=== PATIENT | female | born 1970 | race Caucasian/White ===

== ENCOUNTER 2017-02-14 10:20 | Day surgery (SDC) | payer OTHER ==
[~2017-02-14] VITALS: Ht 156.2 cm; Wt 95.2 kg
[~2017-02-14 10:20] MED LIST: 0.9% Sodium Chloride 1,000 ML IV SCH; ALBU8.5H2 INHALATION; CALC-140 PO; FLUT12AE8 IH; FLUT9.9S NS; IBUP800T28 PO; LORA0.5T PO; PREN-100 PO; Sodium Chloride LOK Flush 10 mL Syringe IV PRN; fentaNYL-PF 50 mCg/mL 2 mL Inj IVPUSH PRN
[2017-02-14 10:57] VITALS: BP 114/64; PULSE 84; RESP 16; O2SAT 98
[2017-02-14] MEDS ORDERED: LACT1CAP75 PO (11:01)
[2017-02-14] MEDS ORDERED: CHOL5000 PO (11:02)
[2017-02-14 12:04] VITALS: BP 114/65; PULSE 74; RESP 15; O2SAT 99
[2017-02-14 12:24] VITALS: BP 109/62; PULSE 72; RESP 16; O2SAT 100
--- NOTE | 2017-02-14 13:06 | ENDO ---
[address] [address] ENDOSCOPY PROCEDURE PATIENT: ADRIANA KRISHNA : 1970 MR#: [id number] ADMIT: 02/14/2017 JOB ID: [id number] DATE OF SERVICE: 02/14/2017 PRIMARY PROVIDER: Flo Mathew DO PROCEDURE: Colonoscopy. INDICATIONS: A 46-year-old female with multifocal abdominal pain, elevated C-reactive protein, history of inflammation at the ileocecal valve at last colonoscopy in 2011, history of enteritis at CT, and a history of colonic tubular adenoma. Updated colonoscopy is thus pursued. EQUIPMENT: [employer]. SEDATION: Versed 5 mg, 100 mcg fentanyl. COMPLICATIONS: None identified. BOWEL PREP: Excellent. DESCRIPTION OF PROCEDURE: After the risks and benefits were explained, written and verbal informed consent was obtained. The patient was brought into the endoscopy suite and placed into the left lateral decubitus position. Sedation was achieved using the above-stated medications with the addition of oxygen via nasal cannula. A digital rectal examination was accomplished and did not elicit any anorectal pathology. The scope was introduced into the rectum and advanced under direct visualization to the cecum as identified by the appendiceal orifice and ileocecal valve. The terminal ileum was briefly interrogated. The scope was then slowly withdrawn to carefully examine the mucosa for any defects or lesions. Retroflexed views were avoided in the rectum. Multiple direct views were made through the dentate line for exclusion of pathology. The colon was decompressed. The scope removed from the patient who tolerated the procedure well. FINDINGS: The terminal ileal mucosa appeared entirely normal and healthy. Photograph was taken. I did not see any signs of inflammation throughout the colon. The ileocecal valve appeared normal. No polyps or mass lesions identified throughout. The rectal mucosa appeared healthy and normal as well. ENDOSCOPIC DIAGNOSIS: Visually normal colonoscopy and terminal ileoscopy. RECOMMENDATIONS: 1. Considering clinical symptoms, proceed with MRCP in light of the right upper quadrant pain and mildly abnormal liver chemistries. 2. Depending on findings at MRCP and any persisting symptoms, we may need to consider a small bowel capsule endoscopy.
== END 2017-02-14 23:59 | disposition home or self-care (01) ==
LOC: END 10:20
PROVIDERS: ATTEND Internal Medicine Gastroenterology
DX: R10.11 Right upper quadrant pain (principal); R79.89 Other specified abnormal findings of blood chemistry; R19.7 Diarrhea, unspecified; Z86.010 Personal history of colon polyps; G47.33 Obstructive sleep apnea (adult) (pediatric); R01.1 Cardiac murmur, unspecified; E66.9 Obesity, unspecified; Z68.41 Body mass index [BMI] 40.0-44.9, adult; Z79.51 Long term (current) use of inhaled steroids
CPT/HCPCS: 45378; G0500; J7030

== ENCOUNTER 2017-02-16 18:21 | Emergency (ER) | payer OTHER ==
[~2017-02-16] VITALS: Ht 157.5 cm; Wt 90.9 kg
[~2017-02-16 18:21] MED LIST changes: -0.9% Sodium Chloride 1,000 ML IV SCH; -ALBU8.5H2 INHALATION; +CHOL5000 PO; -IBUP800T28 PO; +LACT1CAP75 PO; -LORA0.5T PO; -PREN-100 PO; -Sodium Chloride LOK Flush 10 mL Syringe IV PRN; -fentaNYL-PF 50 mCg/mL 2 mL Inj IVPUSH PRN
[2017-02-16 18:29] VITALS: BP 142/78; PULSE 98; RESP 16; O2SAT 99
[2017-02-16 19:33] LABS: BASOPHILS % (AUTO) 0.3 % (0-3); EOSINOPHILS % (AUTO) 0.8 % (0-5); MONOCYTES % (AUTO) 6.6 % (4-12); Mean Corpuscular Hemoglobin 29.3 pg (27.0-35.0); Mean Corpuscular Volume 87.8 fL (81-100); NEUTROPHILS % (AUTO) 65.5 % (40-74); Platelet Count 286 bil/L (150-400)
--- NOTE | 2017-02-16 20:24 | ED.REPORT ---
HPI-Abd Pain F 40 and Over Date of Service Feb 16, 2017 ED Provider: Trell Bennett MD Pt is an obese 46 year old female with a history of recent colonoscopy, appendectomy, cholecystectomy, and who presents to the ED complaining of gradually worsening right-sided abdominal pain that radiates to her back onset yesterday. She had a colonoscopy on 02/14/17 that was WNL, and was referred to [facility] by Dr. Ramires when her pain started. The pt denies fever, nausea, vomiting, diarrhea, and dysuria. She reports that she has been eating and drinking fine, but has increased urinary frequency. She rates the pain as 7/10 and describes it as "spasms" in her back and stabbing abdominal pain. The pain is exacerbated with sitting and pressure. The pt reports that she has chronic epigastric pain for which she is scheduled for an MRCP in the near future. Pt has not taken anything to relieve her symptoms today, but took Tylenol last night. Nursing Notes Stated Complaint: ABDOMEN PAIN Chief Complaint: Female Abdominal Pain Nursing Notes Reviewed: Yes Allergies: Coded Allergies: erythromycin base (Verified Allergy, Severe, HIVES, 02/16/17) esomeprazole (Verified Allergy, Severe, HEADACHE, 02/16/17) Cephalosporins (Verified Allergy, Unknown, HIVES, 02/16/17) Macrolide Antibiotics (Verified Allergy, Unknown, 02/16/17) azithromycin (Verified Allergy, Unknown, HIVES, 02/16/17) clarithromycin (Verified Allergy, Unknown, 02/16/17) Scheduled Calcium Carbonate/Vitamin D3 (Calcium + Vitamin D Tablet) 1 Each Tablet 1 EACH PO DAILY Cholecalciferol (Vitamin D3) (Vitamin D3) 5,000 Unit Capsule 5,000 UNIT PO DAILY Fluticasone Propionate (Flonase Allergy Relief) 50 Mcg/Actuation [place].susp 1 SPRAY NS DAILY Fluticasone Propionate (Flovent HFA 110 mcg) 12 Gm Aer.w.adap 1 PUFF IH BID Lactobacillus Combo No.10 (Probiotic) 1 Each Capsule 1 EACH PO DAILY General Time Seen by MD: 20:17 Chief Complaint Abdominal pain Hx Obtained From: Patient Arrived By: Walk-in Sudden in Onset?: No Onset Occurred: 1 day ago Symptom Duration: Since onset Progression since Onset: Gradually worsening Location: : RLQ: RUQ Quality: Stabbing Radiation: : Back Severity: Current: Pain level 7 out of 10 Severity: Maximum: Pain level 7 out of 10 Recent Healthcare: Recent doctor visit, Previous surgery Similar Sx Previous: No Past Medical History Past Medical History History of multifocal abdominal pain, history of inflammation at the ileocecal valve colonoscopy in 2012 History of colonic tubular adenoma Past Surgical History Colonoscopy on 02/14/17 that was WNL Smoking History Never Smoker Social History Alcohol Use: "Social" Drug Use: Denies drug use Ambulatory Status Independent Review of Systems Constitutional: Denies: Fever GI: Reports: Abdominal pain, Denies: Diarrhea, Nausea, Vomiting Female: Reports: Urinary frequency, Denies: Dysuria Musculoskeletal: Reports: Back pain Complete sys rev & neg: except as marked. Physical Exam Vital Signs Vital Signs (First) Date Time Temp Pulse Resp B/P Pulse Ox O2 Delivery O2 Flow Rate FiO2 02/16/17 18:29 36.8 98 16 142/78 99 Room Air Initial VS: Reviewed Head / Eyes: Atraumatic, Normocephalic, PERRL ENT: Mucous membranes moist, Conjunctiva normal, No scleral icterus Neck: Supple, Full range of motion Extremities: Vascular intact, Neuro intact Skin: Warm, Dry, No cyanosis Neurologic: Alert, Oriented, Nonfocal Psychiatric: Mood/affect normal, Behavior normal General/Constitutional: Awake, Alert, No acute distress, Cooperative, Not toxic appearing Respiratory / Chest: Breath sounds NL, Breath sounds = bilat, No respiratory distress, No rales, No rhonchi, No wheezing, No retractions Cardiovascular: Heart rate NL, Regular rhythm, Heart sounds NL Abdomen: Soft, No guarding, No rebound Trace tenderness on the right side. Back: Atraumatic, Full range of motion Interpretation & Diagnostics Lab Results Interpretation Result Diagram: 02/16/17190902/16/171909 Test 02/16/17 19:10 02/16/17 19:45 White Blood Count 11.5th/mm3 (3.8-10.1) Red Blood Count 4.75mil/mm3 (3.90-5.20) Hemoglobin 13.9g/dL (12.0-15.6) Hematocrit 41.7% (35.0-46.0) Mean Corpuscular Volume 87.8fL (81-100) Mean Corpuscular Hemoglobin 29.3pg (27.0-35.0) Mean Corpuscular Hemoglobin Concent 33.3% (32.0-37.0) Red Cell Distribution Width 13.4% (12.3-15.4) Platelet Count 286bil/L (150-400) Neutrophils (%) (Auto) 65.5% (40-74) Lymphocytes (%) (Auto) 26.5% (14-46) Monocytes (%) (Auto) 6.6% (4-12) Eosinophils (%) (Auto) 0.8% (0-5) Basophils (%) (Auto) 0.3% (0-3) Sodium Level 138mEq/L (134-144) Potassium Level 3.9mEq/L (3.5-5.2) Chloride Level 98mEq/L (97-108) Carbon Dioxide Level 23mmol/L (18-29) Blood Urea Nitrogen 11mg/dL (6-24) Creatinine 0.74mg/dL (0.57-1.00) Estimat Glomerular Filtration Rate 121mL/min (>59) Glucose Level 103mg/dL (60-99) Calcium Level 10.0mg/dL (8.5-10.1) Magnesium Level 2.0mg/dL (1.6-2.6) Total Bilirubin 0.4mg/dL (0.0-1.2) Aspartate Amino Transf (AST/SGOT) 20U/L (0-50) Alanine Aminotransferase (ALT/SGPT) 23U/L (0-32) Alkaline Phosphatase 131U/L (25-150) Total Protein 8.0g/dL (6.4-8.4) Albumin 4.2g/dL (3.4-5.0) Lipase 44U/L (13-60) Hold Lowery Top Tube Received (Received) Hold Urine Received (Received) Lab Results Interpretation: CBC positive leukocytosis CMP normal Urine negative Urine dip negative CT Abd / Pelvis Interpretation IMPRESSION: No inflammation seen, no free air identified. There is no sign of colonic hematoma related to recent colonoscopy. Source of current pain is not identified. Dictated by: Bello Velasquez M.D. on 02/16/2017 at 21:08 Study type: Abdominal CT IV contrast Interpretation / Wet Read by: Interpret - Radiologist Re-Eval/Medical Decision Med Decision/Clinical Course This is a 46-year-old female who presents referred to the emergency department for abdominal pain following a colonoscopy. The colonoscopy was normal, and was performed due to abdominal pain of uncertain etiology with a previous history of terminal ileum inflammation. A procedure note demonstrate no complications or issues during the procedure. The patient had increasing pain for the past 2 days. No fevers, no nausea or vomiting. She still has her midepigastric pain as well for which an MRCP is now being planned, reports this is a different type of pain. Patient clinically appears well. Her labs are normal. A CT abdomen and pelvis was obtained and was negative-no pathology identified, no complication of procedure such as perforation or injury. Patient is reassured. She does receive a pre-pack of oxycodone for pain control. Basis. Routine precautions reviewed. Patient's discharge in good condition Source of Hx: Old records Re-Evaluation/Progress : Time of Eval: 21:21 Re-Evaluation/Progress Note: Pt rechecked. Informed pt of plan for discharge. Pt understands and agrees with plan for discharge. F/U instructions and RTER warnings given. All questions addressed. Differential Diagnosis: Positive: Acute abdominal pain, Negative: Abdominal aortic aneurysm, Bladder outlet obstruct, Bowel obstruction, C. diff colitis, Cervicitis, Cholangitis, Cholecystitis, Cholelithiasis, Constipation, Diverticular disease, Ectopic , Endometriosis, Esophageal rupture, Gun shot wound abdomen, Peptic ulcer disease , Peritonitis, Porphyria, Stab wound abdomen, Trauma, abdominal Counseled Regarding: Diagnosis, Lab results, Need for follow-up, When/why to return to ED Discharge & Departure Primary Impression: Abdominal Pain Generalized Disposition: Home Discharge Condition All VS Reviewed: Yes Condition: Stable Additional Instructions: 1. A Dangerous cause of the abdominal pain was not identified. 2. Your blood work and CT scan were normal-there were no findings of a complication from her recent colonoscopy. 3. Symptoms are expected to improve with time. Continued with plan to follow up for the recommended MRCP. 4. Return again if new or worsening symptoms occur. Referrals: Flo Mathew DO (PCP) Scribe Attestation Portions of this note were transcribed by Mike Case and Jane Kong. I, Dr. Bennett personally performed the history, physical exam and medical decision -making; I reviewed and confirmed the accuracy of the information in the transcribed note. Signed by: Mike Case and Leif Roca, 02/16/17 and 20:50. copies to: Flo Mathew DO Russell, Matthew F MD Feb 16, 2017 20:24 Jane Barrera Feb 16, 2017 20:32 MIKE CASE Feb 16, 2017 21:07
--- NOTE | 2017-02-16 21:12 | DRSVH ---
PROCEDURE: CT ABDOMEN AND PELVIS WITH CONTRAST ([id number]) INDICATIONS: Abd pain s/p colonoscopy TECHNIQUE: After the administration of intravenous contrast, 5 mm thick sections acquired from the diaphragm to the symphysis. 5 mm coronal and sagittal reformats were acquired. For radiation dose reduction, the following was used: automated exposure control, adjustment of mA and/or kV according to patient deshawn isabel. COMPARISON: [facility], CT, ABDOMEN W CONTRAST, 03/04/2014, 13:28. FINDINGS: Image quality: Excellent. ABDOMEN: Lung bases: Lung bases are clear. Heart size is normal. Solid organs: Liver and spleen are normal in size and enhancement. Gallbladder has been previously resected. Biliary system is non dilated. Pancreas enhances normally. No adrenal nodules. Kidneys demonstrate normal size and enhancement, without hydronephrosis. Peritoneum and bowel: Bowel loops demonstrate normal wall thickness and caliber. No free fluid or a ir. Nodes and vessels: No retroperitoneal or mesenteric adenopathy by size criteria. Aorta and inferior vena cava are normal in size. Miscellaneous: No ventral hernias. PELVIS: Genitourinary: Bladder wall thickness is normal. Miscellaneous: No inguinal hernias or adenopathy. Prior appendectomy. Bones: No suspicious bony lesions. No vertebral body compression fractures. IMPRESSION: No inflammation seen, no free air identified. There is no sign of colonic hematoma rela isabel to recent colonoscopy. Source of current pain is not identified. Dictated by: Bello Velasquez M.D. on 02/16/2017 at 21:08 Approved by: Bello Velasquez M.D. on 02/16/2017 at 21:10
[2017-02-16] MEDS ORDERED: _oxyCODONE/APAP 5-325 mg Tablet PO PRN (21:30)
[2017-02-16 22:15] VITALS: BP 135/72; PULSE 87; RESP 16; O2SAT 99
== END 2017-02-16 22:15 | disposition home or self-care (01) ==
LOC: SED 18:21
DX: R10.84 Generalized abdominal pain (principal); Z98.890 Other specified postprocedural states
CPT/HCPCS: 36415; 74177; 80053; 81025; 83690; 83735; 85025; 99284; Q9967